=== PATIENT | male | born 1945 | race Caucasian/White ===

== ENCOUNTER 2016-07-14 10:55 | Observation (INO) | payer MEDICARE ==
[2016-07-13 12:03] LABS: BASOPHILS 0.2 %; BASOPHILS ABSOLUTE 0.01 10/3/uL (0.0-0.16); EOSINOPHILS 2.7 %; EOSINOPHILS ABSOLUTE 0.14 10/3/uL (0.0-0.53); HEMATOCRIT 38.1 % (40.0-51.0); HEMOGLOBIN 13.1 g/dL (13.6-17.8); IMMATURE GRANULOCYTES 0.2 %; IMMATURE GRANULOCYTES ABSOLUTE 0.01 10/3/uL (0.0-0.11); LYMPHOCYTES 32.4 %; MEAN CORPUS HGB CONC 34.4 g/dL (32.0-36.0); MEAN PLATELET VOLUME 10.5 fL (9.2-13.0); MONOCYTES ABSOLUTE 0.63 10/3/uL (0.21-1.20); NEUTROPHILS 52.5 %; NEUTROPHILS ABSOLUTE 2.76 10/3/uL (2.02-8.40); PLATELET COUNT 214 10/3/uL (150-400); RBC DISTRIBUTION WIDTH 13.8 % (12.0-16.0); RED CELL COUNT 4.37 10/6/uL (4.7-6.1); WHITE BLOOD CELLS 5.3 10/3/uL (4.5-10.5)
[2016-07-13 12:05] LABS: MANUAL DIFF NO %; MEAN CORPUSCULAR VOLUME 87.2 fL (80-100)
[2016-07-13 12:15] LABS: A/G RATIO 1.2 (0.7-1.9); ALBUMIN 3.5 G/DL (3.5-5.0); ALKALINE PHOSPHATASE 49 U/L (45-117); BUN (BLOOD UREA NITROGEN) 20 MG/DL (6-23); CALCIUM, SERUM 9.6 MG/DL (8.5-10.4); CHLORIDE, SERUM 106 MMOL/L (96-112); CO2 (CARBON DIOXIDE) 31 MMOL/L (24-34); CREATININE 1.22 MG/DL (0.70-1.30); GFR AFRICAN AMERICAN 70 ML/MIN (>=60); GFR NON AFRICAN AMERICAN 60 ML/MIN (>=60); GLOBULIN 2.9 G/DL (2.5-4.1); POTASSIUM, SERUM 3.6 MMOL/L (3.5-5.3); SGOT(AST) 18 U/L (5-40); SGPT(ALT) 22 U/L (5-65); SODIUM, SERUM 146 MMOL/L (135-148); TOTAL BILIRUBIN 0.7 MG/DL (0-1.2); TOTAL PROTEIN 6.4 G/DL (6.0-8.5)
[2016-07-13 12:16] LABS: GLUCOSE, SERUM 126 MG/DL (60-99)
--- NOTE | ~2016-07-14 | OP ---
Record Of Operation [facility] [address] [place]. [address] NAME: SANTO POST : 46 STATUS : ADM Anjali PAT#: [id number] AGE: 70 ADM/REG DATE : 07/14/16 MR#: [id number] REPORT SERV DATE: 07/14/16 DICTATED BY: SANTO MAS III DATE: 07/14/16 REPORT STATUS : Draft TRANSCRIBED BY: MODL DATE: 07/14/16 DATE OF PROCEDURE: 07/14/2016 PREOPERATIVE DIAGNOSIS: Symptomatic cholelithiasis and cholecystitis. POSTOPERATIVE DIAGNOSIS: Symptomatic cholelithiasis and cholecystitis, severe necrotizing cholecystitis with empyema of the gallbladder. PROCEDURE: Laparoscopic cholecystectomy. SURGEON: Santo Mas M.D. ANESTHESIA: General with intubation. COMPLICATIONS: None. ESTIMATED BLOOD LOSS: 30 mL. SPECIMENS: Gallbladder. DRAINS: Jimenez-Mcarthur in abdominal cavity. LAP AND SPONGE COUNT: Correct x3. BRIEF HISTORY: This 70-year-old presented with evidence for symptomatic cholelithiasis and cholecystitis. The patient states that for the last year, he has had episodes of biliary colic. He recently required evaluation in the emergency room for a severe episode of acute biliary colic and cholecystitis. It was felt that laparoscopic cholecystectomy, possible laparotomy, was indicated. This procedure, the risks, benefits, and alternatives, including but not limited to the risk for bleeding, infection, common bile duct injury, bile leak, retained common bile stone, enterotomy, or injury to any abdominal structure, the definite possible need for laparotomy, possible persistence of his symptoms unrelieved by surgery, possibility of postoperative diarrhea or incisional hernia, and unforeseen complications including deep venous thrombosis, pulmonary embolus, myocardial infarction, stroke, pneumonia, and , were fully and completely explained to the patient and his family at length prior to surgery. The fact that this was a major operation with risk for major morbidity and mortality and no guarantee for relief of his symptoms were explained to them. The expected length recovery with both open and laparoscopic procedures was explained. The fact that he would be at increased risk for thromboembolic complications while his Plavix was held perioperatively as well as increased risk of bleeding because of use of this medication was explained. In addition, due to the long duration of his symptoms and a recent acute episode of cholecystitis or biliary colic requiring evaluation in the emergency room, increased risk now that his gallbladder would be very diseased with increased risk for distortion of normal anatomy and increased risk for surgical complications, the possible need for laparotomy was explained. The patient's questions were answered. He understood the risks and agreed to surgery as planned. Record Of Operation [facility] [address] [place]. [address] NAME: SANTO POST : 46 STATUS : ADM Anjali PAT#: [id number] AGE: 70 ADM/REG DATE : 07/14/16 MR#: [id number] REPORT SERV DATE: 07/14/16 DICTATED BY: SANTO MAS III DATE: 07/14/16 REPORT STATUS : Draft TRANSCRIBED BY: MODL DATE: 07/14/16 FINDINGS: The patient has severe gallbladder disease. The gallbladder cowan were markedly thickened, inflamed, and edematous with areas of necrosis. The omentum was densely adherent to the gallbladder. The gallbladder cowan were very thick and there was rufus pus within the gallbladder, all consistent with severe necrotizing cholecystitis and empyema of the gallbladder. The procedure was extremely difficult. For this reason, the length of the procedure was extended by 100%. For this reason, modifier 22 was added to the procedure code. DESCRIPTION OF PROCEDURE: After being appropriately identified and after discussing risks of surgery with the patient's family again in the preoperative area, he was taken to the operating room and placed in the supine position on the operating room table. General anesthesia was administered. He was intubated without difficulty. The abdomen was prepped and draped sterilely in the usual fashion. After an appropriate "time-out" per JCAHO standards, a small transverse incision was made just below the umbilicus. The skin and fascia on either side were elevated with towel clips. A Veress needle was placed through the incision into the peritoneal cavity. The correct position of the needle in the peritoneal cavity was confirmed by the hanging drop test. The abdominal cavity was then insufflated to about 13 mmHg of carbon dioxide. The correct position of air in the peritoneal cavity was confirmed by palpation. The Veress needle was removed and replaced with a 10 mm trocar. The laparoscope was placed through this. The patient was placed in reverse Trendelenburg position and to his left. A second 10 mm trocar was placed just below the xiphoid process, to the right of the falciform ligament, under direct vision with the laparoscope. Two 5 mm trocars were placed along the right subcostal margin, one in the midaxillary line and the other in the midclavicular line. These were also placed under direct vision with the laparoscope. The upper abdomen was inspected. The gallbladder was severely diseased. We initially could not even identify the gallbladder because it was so inflamed and engulfed by the omentum, which was completely adherent to the gallbladder. There was a severe phlegmon and inflammatory process in the right upper quadrant. It clearly centered around the gallbladder. The liver itself was normal and the upper abdomen was otherwise unremarkable as far as we could determine through the laparoscope. The appropriate instruments were placed through the trocars. Using sharp dissection, the adhesions between the gallbladder and omentum were carefully divided. This was very difficult secondary to the severe adhesions between the gallbladder and omentum, which were extremely inflammatory and vascular. After some exposure of the gallbladder, we were able to decompress it with a large needle. There is noted to be rufus white pus within the gallbladder consistent with empyema of the gallbladder. Using sharp dissection, the adhesions between the gallbladder and omentum were carefully divided. The gallbladder was then grasped and the infundibulum of the gallbladder was retracted laterally and inferiorly. Using sharp dissection, the cystic duct and cystic artery were carefully defined proximally and distally. The cystic duct was fairly long. The junction of the cystic duct-common bile duct was appreciated, was not skeletonized. The cystic artery was similarly defined proximally and distally. The fibrous and fatty tissue between these structures was divided so as to clearly identify the critical view of safety and triangle of Calot. The lower Record Of Operation [facility] [address] [place]. [address] NAME: SANTO POST : 46 STATUS : ADM Anjali PAT#: [id number] AGE: 70 ADM/REG DATE : 07/14/16 MR#: [id number] REPORT SERV DATE: 07/14/16 DICTATED BY: SANTO MAS III DATE: 07/14/16 REPORT STATUS : Draft TRANSCRIBED BY: MODL DATE: 07/14/16 portion of the gallbladder was dissected away from the liver so as to clearly identify the critical view of safety. Again, the triangle of Calot was clearly defined. Once these structures were clearly defined, the cystic duct was clipped with two clips, one on the common bile duct side and one on the gallbladder side, all placed as close to the gallbladder as possible, taking care not encroach upon or injure the common bile duct in any way. The cystic duct was then divided between these clips as close to the gallbladder as possible. We elected not to perform a cholangiogram because there was no preoperative or intraoperative evidence for bilirubin dilatation because the patient's preoperative liver enzymes were normal and because his biliary anatomy was clearly defined. The cystic artery was then similarly clipped and divided as close to the gallbladder as possible. Using the spatula and the cautery, the gallbladder carefully dissected from the liver bed. This went very well. Before the gallbladder was completely removed, the gallbladder bed and portal areas portal areas were irrigated numerous times with saline. This process was repeated several times until hemostasis was meticulously and thoroughly assured in all areas. It was also assured that the clips in the portal area were in good position and that there was no extravasation of bile from any accessory bile ducts. The gallbladder cowan were markedly thickened, inflamed, and necrotic. The gallbladder was then completely dissected away from the liver and placed in an Endopouch. The liver bed was elevated, irrigated, inspected for meticulous and thorough hemostasis and for absence of any biliary extravasation. Surgicel was placed in the gallbladder bed to help with hemostasis. The Jimenez-Mcarthur drain was placed in the gallbladder bed and brought out through one of the lateral trocar sites. At this time, the gallbladder and the Endopouch were brought out through the infraumbilical trocar site after placing the laparoscope through the subxiphoid trocar. The fascia of the infraumbilical incision was closed with a 0 Vicryl suture. The lateral two trocars were removed and these three lower trocar sites were inspected on the underside for hemostasis with the laparoscope. Once this was assured, the subxiphoid trocar was removed under direct vision with the laparoscope to assure hemostasis in this incision. The air was removed from the peritoneal cavity through the skin incisions. The skin incisions were inspected for hemostasis and then closed with running subcuticular 4-0 Monocryl stitches. They were injected with 0.5% Marcaine. Dressings were applied. Anesthesia was reversed, and the patient was taken to recovery room in stable condition. He tolerated the procedure well. His family was informed of results of surgery. The patient will be admitted to the hospital at least overnight for parental antibiotics due to the severity of his disease with marked pus within the gallbladder and marked inflammatory changes around the gallbladder, which places the patient at high risk for postoperative subhepatic abscess. GERONIMO/NATALY Santo Mas III, M.D. / [id number] CC: Santo Mas III, M.D. Record Of Operation [address] [address] NAME: SANTO POST : 46 STATUS : ADM Anjali PAT#: [id number] AGE: 70 ADM/REG DATE : 07/14/16 MR#: [id number] REPORT SERV DATE: 07/14/16 DICTATED BY: SANTO MAS III DATE: 07/14/16 REPORT STATUS : Draft TRANSCRIBED BY: NATALY DATE: 07/14/16 Santo Manzo M.D.
--- NOTE | ~2016-07-14 | PREOPHP ---
PreOp History and Physical [address] [address] NAME: SANTO POST : 46 STATUS : DIS Anjali PAT#: [id number] AGE: 70 ADM/REG DATE : 07/14/16 MR#: [id number] REPORT SERV DATE: 07/19/16 DICTATED BY: CHACE OROSCOSANTO YARA DATE: 07/11/16 REPORT STATUS : Draft TRANSCRIBED BY: MODL DATE: 07/11/16 HISTORY OF PRESENT ILLNESS: This 70-year-old male comes to the operating room for laparoscopic cholecystectomy, possible laparotomy for symptomatic cholelithiasis and cholecystitis. The patient complains of a nine-month history of intermittent episodes of right upper quadrant abdominal pain with associated nausea and food intolerance. The pain and symptoms become progressively worse and more frequent. The pain is worse after eating. The patient describes the pain as an 8/10 when it occurs. The patient has gallstones and is felt to have symptomatic cholelithiasis and cholecystitis. He comes to the operating room now for laparoscopic cholecystectomy, possible laparotomy. PAST MEDICAL HISTORY: 1. History of left renal cell cancer, status post left nephrectomy. 2. Hypertension. 3. Hyperlipidemia. 4. Gastroesophageal reflux disease. 5. Arthritis. 6. Anxiety. 7. Coronary artery disease. 8. History of myocardial infarction in the past. ALLERGIES: ELIQUIS. MEDICATIONS: Maria R, amlodipine, aspirin, atorvastatin, clonidine, Plavix, fenofibrate, indapamide, irbesartan, lisinopril, lorazepam, metoprolol, nitroglycerin, omeprazole. PAST SURGICAL HISTORY: Includes coronary artery bypass grafting, inguinal hernia repair, partial left nephrectomy. FAMILY HISTORY: Positive for hypertension, breast cancer, and heart disease. SOCIAL HISTORY: The patient has a previous history of tobacco abuse. He has a history of alcohol use. REVIEW OF SYSTEMS: The patient's 14-point review of systems otherwise unremarkable except for joint pain and swelling. PHYSICAL EXAMINATION: GENERAL: He is an obese male, in no acute distress. He is alert and oriented x3. VITAL SIGNS: Blood pressure 194/102, pulse 78, temp 98.3. HEENT: Unremarkable. Cranial nerves 2 through 12 are normal LUNGS: Clear. CARDIAC: Normal. ABDOMEN: Soft with some tenderness in the right upper quadrant in epigastric areas. EXTREMITIES: Normal. PreOp History and Physical [facility] [id number] [place]. [address] NAME: SANTO POST : 47 STATUS : DIS Anjali PAT#: [id number] AGE: 70 ADM/REG DATE : 07/14/16 MR#: [id number] REPORT SERV DATE: 07/19/16 DICTATED BY: SANTO MAS III DATE: 07/11/16 REPORT STATUS : Draft TRANSCRIBED BY: NATALY DATE: 07/11/16 LABORATORY DATA: Gallbladder ultrasound shows gallstones with some gallbladder wall thickening. ASSESSMENT: 1. A 70-year-old male with symptomatic cholelithiasis and cholecystitis. 2. Hypertension. 3. Coronary artery disease. 4. History of obesity. 5. Hyperlipidemia. 6. History of left renal cell cancer, status post partial left nephrectomy. 7. Arthritis. 8. Anxiety. 9. History of myocardial infarction in the past. 10.History of coronary artery bypass graft. PLAN: The patient comes to the operating room now for laparoscopic cholecystectomy, possible laparotomy. This procedure, the risks, benefits, and alternatives, including not limited to the risk for bleeding, infection, common bile duct injury, bile leak, retained common bile stone, enterotomy, or injury to any abdominal structure, the definite possible need for laparotomy, possible persistence of his symptoms unrelieved by surgery, the possibility of postop diarrhea or incisional hernia, and unforeseen complications including deep venous thrombosis, pulmonary embolus, myocardial infarction, stroke, pneumonia, and , have been fully and completely explained to the patient at length prior to surgery. The fact that this is a major operation with risk for major morbidity and mortality and no guarantee for relief of his symptoms has been explained to them. The expected length of recovery with open laparoscopic procedures has been explained. The fact that he is at increased risk of possible need for laparotomy, enterotomy common bile duct injury, and surgical complications due to his obesity has been explained. The fact that he is at increased risk for thromboembolic complications while his Plavix is held perioperatively has been explained as well as the increased risk for bleeding because of the use of this medication. The patient's questions have been answered clearly, understands the risks, and agrees to the surgery as planned. GERONIMO/NATALY Santo Mas III, M.D. / [id number] CC: Maribeth Serra III, M.D.
[~2016-07-14 10:55] MED LIST: ASA5GR PO; ASAB PO; ATV.5 PO; ATV1 PO; AVAP150 PO; AVAPRO300 MG PO; CAT3 PO; CATAPRES3 TOP; CATPATCH1 TOP; CO Q-10100 MG PO; COQ10100 MG OR; LIPITOR80 MG PO; LISINOPRIL40 MG PO; LOFIB160 PO; LOFIBRA160 MG PO; LOZOLTAB PO; MICROZIDE PO; MULTIPLE VIT PO; NITROSTAT0.4 MG SL; NORCO1 TA2 PO; NORV10 PO; PLAVIX PO; TOPROL XL200 MG PO; VITAMIN D31000 UNIT PO; VITAMIN D400 UNI1 PO; [UNRECOGNIZED DRUG - OTHER] PO
[2016-07-14 21:26] LABS: HEMATOCRIT 42.2 % (40.0-51.0); HEMOGLOBIN 14.5 g/dL (13.6-17.8)
[2016-07-15 07:23] LABS: BASOPHILS 0.1 %; BASOPHILS ABSOLUTE 0.01 10/3/uL (0.0-0.16); EOSINOPHILS 0 %; HEMOGLOBIN 12.4 g/dL (13.6-17.8); IMMATURE GRANULOCYTES 0.2 %; IMMATURE GRANULOCYTES ABSOLUTE 0.02 10/3/uL (0.0-0.11); LYMPHOCYTES 12.5 %; LYMPHOCYTES ABSOLUTE 1.34 10/3/uL (0.67-4.30); MEAN CORPUS HGB CONC 34.1 g/dL (32.0-36.0); MEAN CORPUSCULAR HEMOGLOB 30.1 pg (26.0-34.0); MEAN CORPUSCULAR VOLUME 88.3 fL (80-100); MEAN PLATELET VOLUME 10.8 fL (9.2-13.0); MONOCYTES ABSOLUTE 1.49 10/3/uL (0.21-1.20); NEUTROPHILS 73.2 %; NEUTROPHILS ABSOLUTE 7.82 10/3/uL (2.02-8.40); PLATELET COUNT 219 10/3/uL (150-400); RBC DISTRIBUTION WIDTH 13.8 % (12.0-16.0); RED CELL COUNT 4.12 10/6/uL (4.7-6.1)
[2016-07-15 07:28] LABS: HEMATOCRIT 36.4 % (40.0-51.0); MANUAL DIFF NO %; WHITE BLOOD CELLS 10.7 10/3/uL (4.5-10.5)
[2016-07-15 07:46] LABS: A/G RATIO 0.9 (0.7-1.9); BUN (BLOOD UREA NITROGEN) 19 MG/DL (6-23); CHLORIDE, SERUM 103 MMOL/L (96-112); CREATININE 1.35 MG/DL (0.70-1.30); GFR AFRICAN AMERICAN 62 ML/MIN (>=60); GFR NON AFRICAN AMERICAN 53 ML/MIN (>=60); GLOBULIN 3.4 G/DL (2.5-4.1); GLUCOSE, SERUM 121 MG/DL (60-99); POTASSIUM, SERUM 3.8 MMOL/L (3.5-5.3); SGOT(AST) 47 U/L (5-40); SGPT(ALT) 34 U/L (5-65); TOTAL BILIRUBIN 0.8 MG/DL (0-1.2); TOTAL PROTEIN 6.4 G/DL (6.0-8.5)
[2016-07-15 07:47] LABS: ALKALINE PHOSPHATASE 38 U/L (45-117); CALCIUM, SERUM 8.4 MG/DL (8.5-10.4); CO2 (CARBON DIOXIDE) 26 MMOL/L (24-34); SODIUM, SERUM 139 MMOL/L (135-148)
[2016-07-15] MEDS ORDERED: PERCOCET1 TA2 PO (08:27)
[2016-07-15] MEDS ORDERED: DURICEF (08:27)
== END 2016-07-15 12:05 | disposition home or self-care (01) ==
LOC: SDC 10:55 → 5SO 15:37
PROVIDERS: Surgery
PROC: 0FT44ZZ Resection of Gallbladder, Percutaneous Endoscopic Approach (ICD-10-PCS; principal; 2016-07-14 13:30)
DX: K80.00 Calculus of gallbladder with acute cholecystitis without obstruction (principal); I10 Essential (primary) hypertension; E78.5 Hyperlipidemia, unspecified; K21.9 Gastro-esophageal reflux disease without esophagitis; M19.90 Unspecified osteoarthritis, unspecified site; F41.9 Anxiety disorder, unspecified; I25.10 Atherosclerotic heart disease of native coronary artery without angina pectoris; I25.2 Old myocardial infarction; Z88.8 Allergy status to other drugs, medicaments and biological substances; Z85.528 Personal history of other malignant neoplasm of kidney; Z79.82 Long term (current) use of aspirin; Z79.02 Long term (current) use of antithrombotics/antiplatelets; Z79.899 Other long term (current) drug therapy; Z98.890 Other specified postprocedural states; Z82.49 Family history of ischemic heart disease and other diseases of the circulatory system; Z85.3 Personal history of malignant neoplasm of breast; Z87.891 Personal history of nicotine dependence; Z87.442 Personal history of urinary calculi
CPT/HCPCS: 71020; 80053; 85014; 85018; 85025; 88304; 93005; 96374; 96376; A9270-GY; G0378; J0330; J0690; J0694; J2250; J2405; J2710; J3010